=== PATIENT | female | born 1955 | race Caucasian/White ===

== ENCOUNTER 2020-07-19 08:59 | Day surgery (SDC) | payer MEDICARE, BC ==
[2020-07-19] MEDS ORDERED: EPINEPHrine 1 MG/ML AMP ONE (09:00)
[2020-07-19] MEDS ORDERED: Bupivacaine 0.25% HCL 30 ML VIAL ONE (09:00)
[2020-07-19] MEDS ORDERED: Fentanyl 100 MCG/2 ML VIAL ONE (09:02)
[2020-07-19] MEDS ORDERED: Ketorolac Tromethamine 30 MG/ML VIAL ONE (09:15)
[2020-07-19] MEDS ORDERED: PHENYLEPHRINE-NS 100 MCG/ML 10 ML SYRINGE ONE (10:06)
[2020-07-19] MEDS ORDERED: ePHEDrine 50 MG/ML VIAL ONE (10:06)
[2020-07-19] MEDS ORDERED: Rocuronium Bromide 10 MG/ML (10ML VIAL) ONE (10:06)
[2020-07-19] MEDS ORDERED: Dexamethasone 20 MG/5 ML VIAL ONE (10:06)
[2020-07-19] MEDS ORDERED: Lidocaine 1% PF 5 ML VIAL ONE (10:06)
[2020-07-19] MEDS ORDERED: Succinylcholine 200 MG/10 ml SYRINGE FS ONE (10:06)
[2020-07-19] MEDS ORDERED: Metoclopramide HCl 10 MG/2 ML VIAL ONE (10:06)
[2020-07-19] MEDS ORDERED: PROPOFOL 200 MG/20 ML VIAL ONE (10:06)
[2020-07-19] MEDS ORDERED: Ondansetron PF 4 MG/2 ML Vial ONE (10:06)
--- NOTE | 2020-07-19 10:41 | OP ---
DATE OF PROCEDURE: 07/19/2020 PREOPERATIVE DIAGNOSIS: Acute appendicitis. POSTOPERATIVE DIAGNOSIS: Acute appendicitis. PROCEDURE PERFORMED: Laparoscopic video appendectomy. ANESTHESIA: General, local 0.5% Marcaine, 30 mL mixed with 1% Xylocaine with epinephrine 20 mL. DESCRIPTION OF PROCEDURE: The patient was taken to the operating room where under general anesthesia abdomen was prepared with ChloraPrep and draped in routine fashion. Local anesthetic was infiltrated in the skin and subcutaneous tissue about all port sites. Teresa catheter placed at the beginning of procedure and removed at the end. Infraumbilical incision made, pneumoperitoneum to 15 mmHg was obtained with a Veress needle, replaced with a 5 port, laparoscope inserted. Right subcostal incision made and 5 port placed. Suprapubic incision made and a 12 port placed. Appendix was noted to be acutely inflamed. Mesoappendix was taken down with the LigaSure. The stump of the appendix divided with Endo-ANNI blue load stapler. Appendix was removed, submitted to Pathology. Good hemostasis noted. Abdominal cavity and pelvis irrigated. Irrigant evacuated. Hemostasis ensured. All instruments were removed. Pneumoperitoneum reduced. Suprapubic fascia approximated with 0 Vicryl, skin with subdermal 4-0 Monocryl, and Dermaglue applied. Job ID: [id number]
--- NOTE | 2020-07-19 10:48 | HP ---
HISTORY OF PRESENT ILLNESS: Sherry Anand is a 65-year-old female, who developed abdominal pain, right lower abdomen yesterday, called EMS, who arrived at her home and she felt better and she sent them way. She then went by private vehicle to [facility], where she underwent evaluation. White count was normal. COVID rapid screen negative. CAT scan verified changes consistent with appendicitis and she was transferred for outpatient appendectomy. ALLERGIES: NONE. HABITS: Tobacco, none. Alcohol, none. MEDICATIONS: None. PAST SURGICAL HISTORY: Ovarian cystectomy many years ago. PAST MEDICAL HISTORY: Noncontributory. REVIEW OF SYSTEMS: Noncontributory. FAMILY HISTORY: Noncontributory. 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 She is single. PHYSICAL EXAMINATION: HEAD, EARS, EYES, NOSE, AND THROAT: Unremarkable. LUNGS: Clear to auscultation. CARDIAC: Regular rate and rhythm without murmur or gallop. ABDOMEN: Soft, nontender except for tenderness in right lower quadrant, guarding, rebound. Positive Rovsing sign. EXTREMITIES: Unremarkable. NEUROLOGIC: Intact. SKIN: Sclerae are normal. VITAL SIGNS: Temperature 98.1 degrees, blood pressure 120/70, respiratory rate 16, height 63 inches, BMI 22. 98% saturations. IMAGING STUDIES: CAT scan reveals changes consistent with appendicitis. White count 9, hemoglobin 14. ASSESSMENT AND PLAN: Acute appendicitis. Recommend laparoscopic video appendectomy. Risks and benefits of procedure were discussed. Questions answered. Plan this as an outpatient. Job ID: [id number]
== END 2020-07-19 12:30 | disposition home or self-care (01) ==
LOC: SDC 08:59
PROVIDERS: ATTEND Specialist
PROC: 0DTJ4ZZ Resection of Appendix, Percutaneous Endoscopic Approach (ICD-10-PCS; principal; 2020-07-19)
DX: K35.80 Unspecified acute appendicitis (principal)
CPT/HCPCS: 88304; J0171; J1100; J1885; J2405; J2704; J2765; J3010; J3490; S0020

== ENCOUNTER 2021-04-17 14:13 | Outpatient (CLI) | payer MEDICARE, BC | END 2021-04-17 14:14 | disposition home or self-care (01) | LOC: BICMAMMO 14:13 | PROVIDERS: ATTEND Internal Medicine | DX: Z13.820 Encounter for screening for osteoporosis (principal); Z78.0 Asymptomatic menopausal state; M81.0 Age-related osteoporosis without current pathological fracture; M85.851 Other specified disorders of bone density and structure, right thigh; M85.852 Other specified disorders of bone density and structure, left thigh | CPT/HCPCS: 77080 ==

== ENCOUNTER 2025-01-16 12:42 | Outpatient (CLI) | payer MEDICARE | END 2025-01-16 12:43 | disposition home or self-care (01) | LOC: BICMAMMO 12:42 | PROVIDERS: ATTEND Internal Medicine | DX: Z78.0 Asymptomatic menopausal state (principal); M81.0 Age-related osteoporosis without current pathological fracture | CPT/HCPCS: 77080 ==